=== PATIENT | male | born 1955 | race Caucasian/White ===

== ENCOUNTER → 2022-08-21 11:24 | Outpatient (BNVA) | payer OTHER, SELFPAY | PROVIDERS: Family Provider Family Medicine; PCP Family Medicine; Referring Provider Family Medicine; Visit Provider Student in an Organized Health Care Education/Training Program | DX: M72.0 Palmar fascial fibromatosis [Dupuytren] (principal) | CPT/HCPCS: 73130; 99203 ==

== ENCOUNTER → 2022-10-31 10:23 | Outpatient (BNVA) | payer OTHER, SELFPAY | PROVIDERS: Family Provider Family Medicine; PCP Family Medicine; Visit Provider Student in an Organized Health Care Education/Training Program | DX: M72.0 Palmar fascial fibromatosis [Dupuytren] (principal) | CPT/HCPCS: 20527; 99214; J0775 ==

== ENCOUNTER → 2022-11-02 09:54 | Outpatient (BNVA) | payer OTHER, SELFPAY | PROVIDERS: Family Provider Family Medicine; PCP Family Medicine; Visit Provider Student in an Organized Health Care Education/Training Program | DX: M72.0 Palmar fascial fibromatosis [Dupuytren] (principal) | CPT/HCPCS: 99214 ==

== ENCOUNTER 2022-11-07 09:18 | Outpatient (RCR) | payer OTHER, SELFPAY | END 2022-11-18 23:59 | disposition home or self-care (01) | LOC: SOT 09:18 | PROVIDERS: PCP Family Medicine; Visit Provider Student in an Organized Health Care Education/Training Program | DX: M72.0 Palmar fascial fibromatosis [Dupuytren] (principal) | CPT/HCPCS: 97110; 97166; L3919 ==

== ENCOUNTER → 2022-12-14 09:45 | Outpatient (BNVA) | payer OTHER, SELFPAY | PROVIDERS: PCP Family Medicine; Visit Provider Student in an Organized Health Care Education/Training Program | DX: M72.0 Palmar fascial fibromatosis [Dupuytren] (principal); S52.502P Unspecified fracture of the lower end of left radius, subsequent encounter for closed fracture with malunion; X58.XXXD Exposure to other specified factors, subsequent encounter; M19.032 Primary osteoarthritis, left wrist | CPT/HCPCS: 99214 ==

== ENCOUNTER 2025-02-19 07:08 | Outpatient (CLI) | payer OTHER, SELFPAY ==
--- NOTE | 2025-02-19 | ECG_ITS ---
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 Interpretive Statements EXERCISE MIBI : EXERCISE DATA: The patient was exercised by Jay protocol. Baseline heart rate was 59 beats per minute. Baseline blood pressure was 136/57 millimeters of mercury. Maximal predicted heart rate was 149 beats per minute. Maximum heart rate achieved was 142, which was 95% of the maximum predicted heart rate. Maximum blood pressure was 198/70 millimeters of mercury. Total exercise time was 5 minutes 2 seconds. Maximum METs achieved was 7. The reason for ending the test was completion of protocol. The patient complained of shortness of breath during the stress test, which then resolved at the end of the test. ELECTROCARDIOGRAM: BASELINE: Showed sinus rhythm, normal axis, no significant ST-T changes at the baseline noted. [] EXERCISE: At the peak exercise level, [] 2 mm horizontal to upsloping ST depressions seen in the inferior leads RECOVERY: During the recovery period, heart rate dropped appropriately. No significant ST-T changes in the recovery suggestive of ischemia noted. [] CONCLUSION: 1. Exercise capacity is fair 2. Heart rate response was appropriate. 3. Blood pressure response was appropriate. 4. Symptoms not suggestive of ischemia. 5. Electrocardiogram portion of the stress test suggestive of ischemia 6. Nuclear scan will be documented separately. Electronically Signed On 03-07-2025 21:33:33 CDT by Gopi Perales M.D. [email or web address]
[2025-02-19 07:19] VITALS: BMI 24.3
--- NOTE | 2025-02-19 07:23 | NMCV_ITS ---
NM julia perf SPECT r/s* [id number] Jayson De Los Santos Age: 70 Gender: M : 1955 Exam Date: 02/19/2025 08:21 Ordering Phys: Yomaira Grullon MD Technologist: TIANA Patterson Exam Location: [facility] Indications: cp STRESS TEST Please see separate stress test report in [facility] for full findings IMAGE PROTOCOL Rest/Stress 1 Exercise Day Radiopharmaceutical Dose (mCi) Administration Site Administered by Rest: Tc-99m 10.6 IV Suzi Burton, SHIPPER/RECEIVER Sestamibi Stress:Tc-99m 32.6 IV Suzi Quinngle, SHIPPER/RECEIVER Sestamibi Rest: 19-Feb-2025 60 Discovery 630 Stress: 19-Feb-2025 30 Discovery 630 Radiopharmaceutical was injected at 86 % maximum heart rate. Images obtained in supine and prone position. SPECT RESULTS Technical Quality: Good Raw Data Analysis: Normal Image Corrections: No attenuation or motion correction applied Summed Stress Score: 2 Summed Rest Score: 3 Summed Difference Score: 2 PERFUSION FINDINGS There is a small sized partially reversible perfusion defect seen in apical wall. This is consistent with small area of prior infarct with minimal lorenza- infarct ischemia seen in LAD territory. FUNCTIONAL RESULTS (calculated via Gated SPECT) Stress Image LV EF (%): 74 Stress EDV (mL):74 TID: 1.02 Stress ESV (mL):19 FUNCTIONAL FINDINGS: There is normal left ventricular systolic function. IMPRESSIONS 1. Abnormal myocardial perfusion imaging with small area of prior infarct with minimal lorenza-infarct ischemia seen in LAD territory. 2. LV systolic function is normal. Gopi Perales MD (Electronically Signed) Final Date: 24 February 2025 10:59 S
[2025-02-19 08:58] VITALS: BP 150/65; PULSE 79
== END 2025-02-19 07:09 | disposition home or self-care (01) ==
LOC: CDL 07:09
PROVIDERS: PCP Family Medicine; Visit Provider Family Medicine
DX: R07.9 Chest pain, unspecified (principal)
CPT/HCPCS: 36415; 78452; 93017; A9500

== ENCOUNTER 2025-02-20 09:51 | Outpatient (CLI) | payer OTHER, SELFPAY ==
--- NOTE | 2025-02-20 09:55 | US_ITS ---
WS: [id number] RIGHT UPPER QUADRANT ULTRASOUND HISTORY: POSTPRANDIAL BELCHING COMPARISON: None available. Liver: 14.8 cm in length. Normal size liver and echogenicity. No bile duct dilatation or mass. Portal Vein: Normal hepatopetal flow with monophasic waveform. Gallbladder: Normally distended gallbladder with no stones or wall thickening. CBD: 0.2 cm Pancreas: Limited pancreas due to body habitus. Right kidney: 9.9 cm in length. Normal size and echogenicity. No hydronephrosis or mass. Aorta and IVC: Unremarkable abdominal aorta and IVC. No ascites. US/US abdomen limited [id number] IMPRESSION: Normal right upper quadrant ultrasound.
== END 2025-02-20 09:52 | disposition home or self-care (01) ==
PROVIDERS: PCP Family Medicine; Visit Provider Family Medicine
DX: Z01.89 Encounter for other specified special examinations (principal)
CPT/HCPCS: 76705

== ENCOUNTER → 2025-06-11 13:58 | Outpatient (BNVA) | payer OTHER, SELFPAY | PROVIDERS: PCP Family Medicine; Visit Provider Internal Medicine | DX: R94.39 Abnormal result of other cardiovascular function study (principal); Z79.82 Long term (current) use of aspirin; Z87.891 Personal history of nicotine dependence; R06.02 Shortness of breath; R07.9 Chest pain, unspecified | CPT/HCPCS: 93005; 99204 ==

== ENCOUNTER 2025-07-09 08:02 | Outpatient (CLI) | payer OTHER, SELFPAY ==
--- NOTE | 2025-07-09 08:30 | USCV_ITS ---
Jayson De Los Santos Age: 70 Gender: M : 1955 Exam Date: 07/09/2025 08:47 Ordering Phys: Gopi Perales M.D ([email or web address]) Technologist: Exam Location: [facility] [place] Indication: cp sob BP: 120 / 76 HR: 54 Rhythm: Sinus Technical Quality: Adequate MEASUREMENTS (Male / Female) Normal Values 2D ECHO LV Diastolic Diameter PLAX 4.0 cm 4.2 - 5.9 / 3.9 - 5.3 cm IVS Diastolic Thickness 1.1 cm 0.6 - 1.0 / 0.6 - 0.9 cm IVS Systolic Thickness 1.9 cm LVPW Diastolic Thickness 1.6 cm 0.6 - 1.0 / 0.6 - 0.9 cm LVPW Systolic Thickness 1.7 cm LVOT Diameter 2.0 cm LV Ejection Fraction 2D Teich 64.4 % LV Ejection Fraction MOD 4C 68.7 % LV Ejection Fraction MOD 2C 51.4 % LV Ejection Fraction 2C AL 53.5 % LA Diameter 2.7 cm RA Systolic Volume 4C AL 52.4 ml RA Systolic Volume 4C MOD 48.7 ml Aorta at Sinotubular Diameter 3.3 cm IVC Diameter 1.5 cm M-MODE LA Ao Ratio MM 0.9 AV Cusp Separation MM 2.8 cm DOPPLER AV Peak Velocity 90.0 cm/s LVOT Peak Velocity 62.0 cm/s AV Area Cont Eq vti 2.1 cm squared AV Area Cont Eq pk 2.2 cm squared MV Peak Velocity 94.0 cm/s MV Area PHT 4.5 cm squared Mitral E to A Ratio 1.2 TV Peak Velocity 211.5 cm/s TR Peak Velocity 213.0 cm/s TR Peak Gradient 18.1 mmHg TV Peak E Velocity 62.0 cm/s PV Peak Velocity 91.0 cm/s FINDINGS Left Ventricle Normal left ventricular size, systolic function and wall thickness, with no regional wall motion abnormalities. Left ventricular ejection fraction is estimated at 60 %. Grade II/IV diastolic dysfunction, moderately elevated filling pressures. Right Ventricle The right ventricle is normal in size and function. Right Atrium The right atrium is normal in size. Left Atrium The left atrium is normal in size. Mitral Valve Mildly thickened mitral valve. No mitral valve stenosis. Mild mitral valve regurgitation. Aortic Valve Mild aortic valve calcification. No aortic valve stenosis. Trace aortic valve regurgitation. Tricuspid Valve Structurally normal tricuspid valve without significant stenosis or regurgitation. Pulmonary artery systolic pressure is normal. Pulmonic Valve Trace pulmonary valve regurgitation. Pericardium Normal pericardium without effusion. Aorta Normal ascending aorta dimension. IVC The inferior vena cava appears normal. CONCLUSIONS Normal left ventricular size, systolic function and wall thickness, with no regional wall motion abnormalities. Left ventricular ejection fraction is estimated at 60 %. Grade II/IV diastolic dysfunction, moderately elevated filling pressures. There is no pericardial effusion. No significant valve abnormalities. Right atrial pressure is around 5 mm of mercury. Yaneth Jimenez MD (Electronically Signed) Final Date: 15 July 2025 20:54 S
== END 2025-07-09 08:03 | disposition home or self-care (01) ==
LOC: RAD 08:02
PROVIDERS: PCP Family Medicine; Visit Provider Internal Medicine
DX: R07.9 Chest pain, unspecified (principal); R06.02 Shortness of breath; R93.1 Abnormal findings on diagnostic imaging of heart and coronary circulation; I34.1 Nonrheumatic mitral (valve) prolapse; I35.8 Other nonrheumatic aortic valve disorders
CPT/HCPCS: 93306